=== PATIENT | male | born 1975 | race Caucasian/White ===

== ENCOUNTER 2017-12-02 23:24 | Emergency (ER) | payer BC ==
[2017-12-02] MEDS ORDERED: Adacel (T-DAP) 0.5 ML VIAL ONE (23:46)
[2017-12-03] MEDS ORDERED: cefTRIAXone\\ROCEPHIN 1 GM VIAL ONE (00:10)
[2017-12-03] MEDS ORDERED: Bacitracin Zinc 1 Packet ONE (00:12)
== END 2017-12-03 00:32 | disposition home or self-care (01) ==
LOC: BURERS 23:24
DX: S61.011A Laceration without foreign body of right thumb without damage to nail, initial encounter (principal); W26.8XXA Contact with other sharp object(s), not elsewhere classified, initial encounter
CPT/HCPCS: 12002; 90471; 90715; 96372; J0696; J2001

== ENCOUNTER 2017-12-16 13:25 | Emergency (ER) | payer BC | END 2017-12-16 13:56 | disposition home or self-care (01) | LOC: BURERS 13:25 | DX: S61.011D Laceration without foreign body of right thumb without damage to nail, subsequent encounter (principal) ==